=== PATIENT | female | born 1995 | race Caucasian/White ===

== ENCOUNTER 2018-09-17 09:23 | Inpatient (IN) ==
[2018-09-17] MEDS ORDERED: Naloxone 0.4 MG/ML INJ IVP PRN (10:02)
[2018-09-17] MEDS ORDERED: Ondansetron 4 MG/2 ML VIAL IVP PRN (10:02)
[2018-09-17] MEDS ORDERED: *HR* Nalbuphine 10 MG/ML AMPUL IVP PRN (10:02)
[2018-09-17] MEDS ORDERED: Famotidine 20 MG/2 ML VIAL IVP PRN (10:02)
[2018-09-17] MEDS ORDERED: Metoclopramide 10 MG/2 ML VIAL IVP PRN (10:02)
[2018-09-17] MEDS ORDERED: Oxytocin 20 units/ LR 1000 mL 20 UNIT/1,000 ML BAG IVC SCH (10:15)
[2018-09-17 10:28] LABS: White Blood Count 13.4 K/mcL (4.3-11.1)
[2018-09-17 10:29] LABS: Basophils # 0.1 K/mcL (0.0-0.2); Basophils % 0.4 %; Eosinophils # 0.1 K/mcL (0.0-0.6); Eosinophils % 0.9 %; Hematocrit 39.5 % (35.3-44.9); Immature Granulocytes % 0.4 % (0-4); Lymphocytes % 22.2 %; Mean Corpuscular HGB Conc 32.9 g/dL (31.6-35.5); Mean Corpuscular Hemoglobin 29.8 pg (28.0-33.3); Mean Corpuscular Volume 90.6 fL (83.0-100.0); Mean Platelet Volume 12.1 fL (9.4-12.4); Monocytes % 7.1 %; Neutrophils # 9.2 K/mcL (1.6-8.9); Platelet Count 305 K/mcL (140-400); Red Blood Count 4.36 M/mcL (3.82-4.97); Red Cell Distribution Width 13.7 % (11.5-14.5)
[2018-09-17 10:37] LABS: Amphetamine Screen,Urine Negative ng/mL (Cutoff=1000); Barbiturate Screen,Urine Negative ng/mL (Cutoff=200); Benzodiazepines Screen,Urine Negative ng/mL (Cutoff=200); Cannabinoid Screen,Urine Negative ng/mL (Cutoff = 50); Cocaine Screen,Urine Negative ng/mL (Cutoff= 300); Opiate Screen,Urine Negative ng/mL (Cutoff=300); Phencyclidine Screen,Urine Negative ng/mL (Cutoff=25)
--- NOTE | 2018-09-17 10:41 | OB/GYN History & Physical ---
Date of Encounter: 09/17/18 Time of Encounter: 10:42 Assessment and Plan (1) 38 weeks gestation of Current visit: Yes Status: Acute Admit for SROM at 38w4d (2) Spontaneous rupture of amniotic membranes Current visit: Yes Status: Acute Augment with Pitocin if needed Temp q2h (3) NST (non-stress test) reactive Current visit: Yes Status: Acute FHR 140 bpm, moderate variability, +15x15 accels, no decels. (4) Blood type O- Current visit: Yes Status: Acute Collect cord blood at delivery. Rhogam if indicated. History of Present Illness Chief complaint: SROM at 38w4d HPI: Ms. Mills is a 23 year old female at 38w4d who presents today after AROM this morning at approximately 0800 while in the office for her visit. Clear fluid, positive movement, small amount of bloody show noted. Blood type: O negative GBS negative HbSAG negative RPR negative HIV negative Hep C negative Varicella Immune Rubella Immune Past Med Surg Social Fam HX - Past Medical History Medical history: no medical history Psychiatric history: no psych history - Past Surgical History Surgical History: other Additional surgical history: ACL repair - Social History Smoking Status: Never smoker Smokeless Tobacco Status: No Alcohol use: none Drug use: none Occupational status: employed Current living situation: Home - Independent Recent Out of Country Travel Within the Last 8 Weeks: No Exposure or Possible Exposure to Illness During Travel: No - Family History Mother Living Status: Still Living Hx Family Cardiac Disorders: No Hx Family Respiratory Disorders: No Hx Family Cancer: No Hx Family GI Disorders: No Hx Family Genitourinary Disorders: No Hx Family Endocrine Disorder: No Hx Family Musculoskeletal Disorders: No Hx Family Neuromuscular Disorders: No Hx Family Neurologic Disorders: No Hx Family HEENT Disorders: No Hx Family Autoimmune Disorders: No Hx Family Reproductive Disorders: No Hx Family Psychosocial Disorders: No Hx Family Medical Disorders: No Obstetrical History - Pregnancies : 1 Para: 0 Term: 0 : 0 Ab's: 0 Livin Medications and Allergies Vit No.129/Iron/FA [ Tablet] 1 each PO DAILY 09/17/18 [History] Allergy/AdvReac Type Severity Reaction Status Date / Time hydrocodone [From Vicodin] Allergy Hives Verified 09/17/18 10:05 oxycodone [From Percocet] Allergy Hives Verified 09/17/18 10:05 Review of System OB All systems PM: reviewed and no additional remarkable complaints except as stated Exam - Constitutional Constitutional: well developed, well nourished, no acute distress, average body habitus - HEENT HEENT: Normocephaly, Mucus Membranes Moist - Neck Neck exam: full ROM - Lungs Respiratory exam: CTAB - Cardiovascular Cardiovascular exam: RRR, +S1, +S2 - Abdomen Abdomen: Present: bowel sounds normal, gravid, non tender - Extremities Extremities exam: full ROM, normal capillary refill, normal inspection - Vulva Vulva: bilateral: normal - Vagina Vagina: Present: normal moisture - Cervix Dilation: 1 Effacement: 80 Station: -1 - Uterus Uterus exam: Present: normal size - Anus/Rectum Anus/Rectum: Present: normal perianal skin Results Result Diagrams: 09/17/18 09:45 Abnormal lab results WBC 13.4 K/mcL (4.3-11.1) H 09/17/18 09:45 9.2 K/mcL (1.6-8.9) H 09/17/18 09:45 All other labs normal. - VTE Reasons for not Prescribing Prophylaxis: Treatment not Indicated - Low risk for VTE
[2018-09-17] MEDS: Ringers Solution, Lactated 1,000 ML IVC SCH ×2 (11:27→17:54)
--- NOTE | 2018-09-17 12:38 | Anesthesia Evaluation PreOp ---
Date of Encounter: 09/17/18 Time of Encounter: 12:36 - Past History Planned Operation: LAURA Cardiac History: Denies any Significant Hx Pulmonary History: Denies Any Significant HX Other Medical History: Denies Any Significant HX, GERD Anesthesia History: No Prior Anesthetic Complications, Past Anesthesia (acl) : Yes Test: Positive Alcohol Use: none Drug use: none Medications and Allergies Vit No.129/Iron/FA [ Tablet] 1 each PO DAILY 09/17/18 [History] Allergy/AdvReac Type Severity Reaction Status Date / Time hydrocodone [From Vicodin] Allergy Hives Verified 09/17/18 10:05 oxycodone [From Percocet] Allergy Hives Verified 09/17/18 10:05 - Meds/Allergy Pre-op Review Medications Reviewed: Yes Allergies Reviewed: Yes Beta Blockers on Current Med List: No Anesthesia Results - Labs 09/17/18 09:45 Anesthesia Exam 123/75 94 16 fht 125 Height: 5'3" Weight: 78 NPO (# of Hours): 4 Pain Scale: 6 Pain Scale Used: Numeric (1 - 10) - HEENT Pupil (Motor): Pupils equal Mallampati: II Teeth: Normal Oral Opening: Greater than 3 - LAND SURVEYOR LOC: Oriented LAND SURVEYOR Motor: Normal RUE, Normal LUE, Normal RLE, Normal LLE, Normal Face LAND SURVEYOR Sensory: Normal: RUE, LUE, RLE, LLE, Face - Cardiac Rhythm: Regular Murmur: None - Pulmonary Breath Sounds: bilateral Clear Respiratory Effort: Symmetrical Anesthesia Assess/Plan ASA Score: 2 Level of consciousness: Cooperative Anesthetic Plan: Epidural (risks discussed, questions answered, consented) Autologous Blood: No Monitoring Plan: Standard Monitors Recovery Plan: Other
--- NOTE | 2018-09-17 14:48 | OB Labor Progress Note ---
Date of Encounter: 09/17/18 Time of Encounter: 14:45 Labor Progress Note - Subjective Subjective: Patient coping well with contractions. Only complains of some slight cramping. - Cervix Cervix: 1-2/80/-1 - Heart Tones Heart Tones: FHR 135, moderate variability, +15x15 accels, no decels. - [place]: Irregular - Interventions Interventions: SVE Cervical haynes balloon inserted without difficulty, instilled with 60mL sterile water. Patient tolerated without difficulty. - Plan Physician notified: Yes Physician notified details: Dr. Tafoya consulted regarding placement of haynes after SROM Plan: Gentle tug to haynes hourly, Remove after 4 hours if not expelled. Consider Pitocin augmentation IV pain medication or epidural when patient desires. Anticipate
--- NOTE | 2018-09-17 17:27 | OB Labor Progress Note ---
Date of Encounter: 09/17/18 Time of Encounter: 17:23 Labor Progress Note - Subjective Subjective: Patient coping well with contractions. Denies need for pain medication or epidural at this point. - Cervix Cervix: 6/90/-1 - Heart Tones Heart Tones: FHR 160 bpm, moderate variability, +15x15 accels, no decels. - [place]: Difficult to evaluate - Interventions Interventions: SVE AROM of forebag with return of moderate amount of clear fluid. IUPC placed for accurate contraction assessment. - Plan Plan: Begin Pitocin augmentation when able IV pain medication or epidural when patient requests Anticipate
[2018-09-17] MEDS ORDERED: *HR* FentaNYL (PF) 100 MCG/2 ML VIAL ONE (19:41)
[2018-09-17] MEDS ORDERED: Epidural Premix (fent/bupiv) 110 ML EP ONE (20:13)
[2018-09-17] MEDS ORDERED: *HR* FentaNYL (PF) 100 MCG/2 ML VIAL EP ONE (20:21)
--- NOTE | 2018-09-17 20:25 | Anesthesia Procedures ---
Date of Encounter: 09/17/18 Time of Encounter: 20:22 Procedures: Anesthesia - Epidural/Spinal Patient examined: Yes OB Eval: Gestational age: 38 OB Eval: : 1 OB Eval: Hx Para: 0 OB Eval: Dilated at (cm): 5 OB Eval: Contractions: Non-stressed pattern Consent Obtained: Yes Supplemental Oxygen: None/Room Air Site Prep: Aseptic Technique, Sterile prep and drape, 0.5% Chlorhexidine/Alcohol Patient position: upright Local Anesthetic: Lidocaine 1% Amount of Local Anesthetic used: 3 Touhy Needle Gauge: 18 Touhy Needle Depth (cm): 7 Catheter Depth at Skin (cm): 15 Test Dose (1.5% Lido + Epi): Volume given (mls): 3 Test Dose Result: Negative Loading Dose: Fentanyl (mcg): 100 Loading Dose: Other: ropivacaine 0.2% 5cc Loading Dose Administered: Thru Touhy Needle Infusion Med: 0.125% Bupivacaine w/ 2 mcg/ml Fentanyl Infusion Rate (mls/hr): 15 (pcea 5cc q30") Catheter Secured in Place: Tegaderm Interspace Used: L2-L3 Loss of Resistance (DELAI): Yes Blood: No CSF: No Paresthesia: No Procedure: aseptic, amelia well, VSS, effective Vitals + FHT's: 112/78 88 16 fht 134
[2018-09-17] MEDS ORDERED: Epidural Premix (fent/bupiv) 110 ML EP SCH (20:30)
--- NOTE | 2018-09-17 23:42 | OB Labor Progress Note ---
Date of Encounter: 09/17/18 Time of Encounter: 23:39 Labor Progress Note - Subjective Subjective: Patient resting comfortably with epidural in place. - Vital Signs Vital Signs: WNL - Cervix Cervix: 9/90/-1 - Heart Tones Heart Tones: 150 bpm, moderate variability, no accels, variable and late decelerations. - [place]: 2-3 min - Interventions Interventions: SVE Attempted pushing but cervix could not be reduced. - Plan Physician notified: Yes Physician notified details: Dr. Tafoya aware of FHR monitor strip, interventions, and SVE Plan: Positioned in extreme right lateral position Recheck cervix and reposition in approximately 30 minutes unless patient feels extreme rectal pressure. Anticipate
--- NOTE | 2018-09-18 01:01 | Event Note ---
Date of Encounter: 09/18/18 Time of Encounter: 00:58 Called to evaluate patient with deceleration(s). Patient is OP. Attempted to rotate. IV pitocin was turned off. O2 mask was placed. We attempted to push with the patient for 15 minutes. Contraction(S) spaced out. Decision was made to hault pushing, and restart the pitocin with adequate contraction(s). Will plan to start IV Pitocin. Pending CEFM, will plan for . If unable to do so or deceleration(s) occur, will likely plan for primary low transverse delivery. MD BELTRAN
--- NOTE | 2018-09-18 02:14 | OB Labor Progress Note ---
Date of Encounter: 09/18/18 Time of Encounter: 02:10 Labor Progress Note - Subjective Subjective: Patient is uncomfortable with contractions and feeling rectal pressure and pain. Epidural dose was decreased previously for pushing. - Vital Signs Vital Signs: WNL, last temp 99.6 oral. - Cervix Cervix: Complete/+1 - Heart Tones Heart Tones: 180 bpm, moderate variability, no accels, late and variable decelerations. - [place]: 2-3 minutes - Interventions Interventions: SVE Attempted pushing. Patient with excellent effort but little descent noted. Dr. Tafoya also at bedside for pushing efforts, aware of heart rate tracing. Attempted side-lying, hands and knees and lithotomy position for pushing. - Plan Physician notified: Yes Physician notified details: Dr. Tafoya at bedside for pushing. Plan: Turn epidural back to original dose. Anesthesia notified. Allow patient to rest for 20-30 minutes after repositioning. Attempt pushing one last time. If no descent will discuss option of section.
--- NOTE | 2018-09-18 03:37 | OB/GYN Procedure Note ---
Delivery - Delivery Date: 09/18/18 Provider: Rachel Joya Intrapartum events: prolonged 2nd stage>2.5hr Delivery induction: haynes Delivery augmentation: rupture of membranes (forebag), pitocin Delivery monitor: internal FHT, internal uterine Anesthesia: epidural Quantitated Blood Loss: 250 - Infant (s) A Infant Delivery Date: 09/18/18 Infant Delivery Time: 02:50 Presentation: vertex Position: OA Gender: Male Viability: Viable Pounds: 7 Ounces: 11 Weight Gram: 3495 kg at 1 minute: 8 at 5 mins: 9 Shoulder Dystocia: not encountered Specimens collected: cord blood Placenta: spontaneous Cord: 3 umbilical vessels - Repair Episiotomy: none Laceration Description: Perineal - 2nd Degree - Complications Delivery complications: none Delivery comments: Called to room for patient with extreme urge to push. Under maternal effort, spontaneous delivery of viable male over second-degree perineal laceration. Infant placed on maternal abdomen for drying and stimulation. Cord clamped and cut after pulsation ceased. No nuchal cord, shoulder dystocia, or meconium encountered. Due to another patient to deliver, perineal repair was initiated by myself and completed by Dr. Tafoya. Spontaneous delivery of intact placenta, EBL 250 MLS. Mother and in kangaroo care for 2 hour recovery. - Disposition Mom disposition: stable in LDR disposition: stable in LDR
[2018-09-18] MEDS ORDERED: Measles/Mumps/Rubella Vacc 0.5 ML VIAL SQ PRN (05:46)
[2018-09-18] MEDS ORDERED: Oxytocin 20 units/ LR 1000 mL 20 UNIT/1,000 ML BAG IVC SCH (05:46)
[2018-09-18] MEDS ORDERED: Rho Immune Globulin 1,500 UNIT SYRINGE IM PRN (05:46)
[2018-09-18] MEDS ORDERED: Acetaminophen 325 MG TABLET PO PRN (05:46)
[2018-09-18] MEDS: Prenatal Vit/FA 1 EACH TABLET PO SCH (08:26)
[2018-09-18] MEDS ORDERED: Benzocaine/Menthol 56 GM AEROSOL SPRAY TP PRN (10:08)
[2018-09-18] MEDS: Ibuprofen 600 MG TABLET PO PRN (21:56)
[2018-09-19 06:21] LABS: Basophils # 0.1 K/mcL (0.0-0.2); Basophils % 0.3 %; Eosinophils # 0.1 K/mcL (0.0-0.6); Eosinophils % 0.6 %; Hematocrit 31.6 % (35.3-44.9); Immature Granulocytes % 0.6 % (0-4); Lymphocytes # 3.6 K/mcL (0.6-4.6); Lymphocytes % 16.4 %; Mean Corpuscular HGB Conc 33.2 g/dL (31.6-35.5); Mean Corpuscular Hemoglobin 30.1 pg (28.0-33.3); Mean Corpuscular Volume 90.5 fL (83.0-100.0); Mean Platelet Volume 11.6 fL (9.4-12.4); Monocytes # 1.5 K/mcL (0.0-1.3); Monocytes % 6.9 %; Neutrophils # 16.4 K/mcL (1.6-8.9); Platelet Count 252 K/mcL (140-400); Red Blood Count 3.49 M/mcL (3.82-4.97); Red Cell Distribution Width 14.1 % (11.5-14.5); Segmented Neutrophils % 75.2 %
[2018-09-19 06:23] LABS: Hemoglobin 10.5 g/dL (11.5-15.4); White Blood Count 21.8 K/mcL (4.3-11.1)
[2018-09-19] MEDS: Ibuprofen 600 MG TABLET PO PRN (06:26)
[2018-09-19] MEDS: Prenatal Vit/FA 1 EACH TABLET PO SCH (08:06)
[2018-09-19 08:09] VITALS: BP 121/77
--- NOTE | 2018-09-19 10:01 | Discharge Summary ---
Date of Encounter: 09/19/18 Time of Encounter: 09:58 - Discharge Diagnosis (1) Vaginal delivery Priority: Primary Status: Acute Comments: Feeling well Tolerating regular diet Pain well-controlled with by mouth pain meds Ambulating independently Voiding independently Lochia light Passing flatus, no BM yet Vital signs stable Discharge home today (2) Breast feeding status of mother Priority: Secondary Status: Acute Comments: Community resources provided (3) Acute blood loss anemia Priority: Secondary Status: Acute Comments: Continue iron supplementation daily (4) Blood type O- Priority: Secondary Status: Acute Comments: Rhogam administered - Discharge Medications Prescriptions: New Ferrous Sulfate 325 mg PO DAILY #30 tablet Acetaminophen [Tylenol] 650 mg PO Q6HR PRN tablet PRN Reason: Mild Pain Ibuprofen [Motrin] 600 mg PO Q6HR PRN #30 tablet PRN Reason: cramping Benzocaine/Menthol Rupert [Dermoplast Rupert] 1 appl TP QID PRN aerosol PRN Reason: See Comments Docusate [Colace] 100 mg PO BID #30 capsule Continued Vit No.129/Iron/FA [ One Daily Tablet] 1 each PO DAILY Home Medications: Vit No.129/Iron/FA [ One Daily Tablet] 1 each PO DAILY 09/17/18 [History] Acetaminophen [Tylenol] 650 mg PO Q6HR PRN tablet 09/19/18 [Rx] Benzocaine/Menthol Rupert [Dermoplast Ru[place]] 1 appl TP QID PRN aerosol 09/19/18 [Rx] Docusate [Colace] 100 mg PO BID #30 capsule 09/19/18 [Rx] Ferrous Sulfate 325 mg PO DAILY #30 tablet 09/19/18 [Rx] Ibuprofen [Motrin] 600 mg PO Q6HR PRN #30 tablet 09/19/18 [Rx] Allergies/Adverse Reactions: Allergy/AdvReac Type Severity Reaction Status Date / Time hydrocodone [From Vicodin] Allergy Hives Verified 09/17/18 10:05 oxycodone [From Percocet] Allergy Hives Verified 09/17/18 10:05 Data Procedures and tests throughout hospitalization: Laboratory Tests 09/17/18 09/17/18 09/18/18 09:45 09:45 03:45 WBC 13.4 H RBC 4.36 Hgb 13.0 Hct 39.5 MCV 90.6 MCH 29.8 MCHC 32.9 RDW 13.7 Plt Count 305 MPV 12.1 Immature Gran % 0.4 Seg Neutrophils % 69.0 Lymphocytes % 22.2 Monocytes % 7.1 Eosinophils % 0.9 Basophils % 0.4 Neutrophils # 9.2 H Lymphocytes # 3.0 Monocytes # 1.0 Eosinophils # 0.1 Basophils # 0.1 Urine Opiates Screen Negative Ur Buprenorphine Scrn Negative Ur Barbiturates Screen Negative Ur Phencyclidine Scrn Negative Ur Amphetamines Screen Negative U Benzodiazepines Scrn Negative Urine Cocaine Screen Negative U Marijuana (THC) Screen Negative Ur Drug Screen Interp See Below Screen NEGATIVE Baby's Blood Type O RH POSITIVE Mother's Blood Type O RH NEGATIVE Rhogam Indicated YES Rhogam Req for Mother 1 09/19/18 06:08 WBC 21.8 H D RBC 3.49 L Hgb 10.5 L D Hct 31.6 L MCV 90.5 MCH 30.1 MCHC 33.2 RDW 14.1 Plt Count 252 MPV 11.6 Immature Gran % 0.6 Seg Neutrophils % 75.2 Lymphocytes % 16.4 Monocytes % 6.9 Eosinophils % 0.6 Basophils % 0.3 Neutrophils # 16.4 H Lymphocytes # 3.6 Monocytes # 1.5 H Eosinophils # 0.1 Basophils # 0.1 Urine Opiates Screen Ur Buprenorphine Scrn Ur Barbiturates Screen Ur Phencyclidine Scrn Ur Amphetamines Screen U Benzodiazepines Scrn Urine Cocaine Screen U Marijuana (THC) Screen Ur Drug Screen Interp Screen Baby's Blood Type Mother's Blood Type Rhogam Indicated Rhogam Req for Mother Labs on day of discharge: Labs from last 24 hours 09/19/18 06:08 WBC 21.8 H D RBC 3.49 L Hgb 10.5 L D Hct 31.6 L MCV 90.5 MCH 30.1 MCHC 33.2 RDW 14.1 Plt Count 252 MPV 11.6 Immature Gran % 0.6 Seg Neutrophils % 75.2 Lymphocytes % 16.4 Monocytes % 6.9 Eosinophils % 0.6 Basophils % 0.3 Neutrophils # 16.4 H Lymphocytes # 3.6 Monocytes # 1.5 H Eosinophils # 0.1 Basophils # 0.1 Date of admission: 09/17/18 09:23 Primary care physician: PCP NONE Consults: 09/18/18 05:46 Consult to Vehicle Sales Professional [CONS] Routine Comment: Vaginal delivery, consult needed Discharging clinician: Mayelin Tuttle Anticipated date of discharge: 09/19/18 - Patient Status Disposition: Home, Self-Care Condition: Good Overall status at discharge: patient is progressing back to baseline - Discharge Instructions Follow Up With: NONE,PCP [Primary Care Provider] - Candy Garza MD [Partnered Physician] - - Diet and Activity Activity: increase activity as tolerated Diet: regular diet Hospital Course Reason for admission: active labor, IUP at term Delivery: Episiotomy: none Laceration: 2nd degree Other procedures: none complications: none Discharge diagnosis: IUP at term delivered baby: male Time Attestation: Total time spent providing and/or coordinating discharge services: Time Spent: Less than 30 minutes Exam - Constitutional Vitals: Temp Pulse Resp BP Pulse Ox 98 F 73 20 121/77 97 09/19/18 08:07 09/19/18 08:07 09/19/18 08:07 09/19/18 08:07 09/19/18 08:07 General appearance IM: A&O X 3, pleasant, no acute distress, answers questions appropriately - Respiratory Respiratory exam: Present: CTAB - Cardiovascular Cardiovascular exam IM: Present: RRR, +S1, +S2 - GI/Abdominal GI/Abdominal exam IM: normal bowel sounds, no peritoneal signs - Rectal Rectal exam: deferred - Uterine Tone: Firm Uterus Position: 2 Fingers Below Umbilicus, Midline - Extremities Exam Extremities exam IM: Present: full ROM, normal capillary refill, normal inspection, radial pulses palpable and symmetrical - Neurological Exam Neurological exam: alert, CN II-XII intact, normal gait, oriented X3, reflexes normal, no focal deficits, strengths equal and symetr throughout - Psychiatric Additional comments: Patient denies history of anxiety and depression. Signs and symptoms of depression reviewed with patient and she verbalizes understanding of when to seek help.
[2018-09-19] MEDS ORDERED: Oxytocin 20 units/ LR 1000 mL 20 UNIT/1,000 ML BAG IVC SCH (12:30)
--- NOTE | 2018-09-19 12:30 | OB Labor Progress Note ---
Date of Encounter: 09/19/18 Time of Encounter: 12:28 Labor Progress Note - Subjective Subjective: Patient comfortable with epidural - Cervix Cervix: 9/100/0 - Heart Tones Heart Tones: Baseline 150 Moderate variability Accelerations present 15 x 15 Variable decelerations with each contraction FHR Category II - [place]: Contractions unreadable - Interventions Interventions: SVE IUPC placed Amnioinfusion started - Plan Physician notified: No Plan: Continue expectant management Start pitocin and increase per protocol Amnioinfusion per order Frequent position changes Anticipate
== END 2018-09-19 17:11 | disposition home or self-care (01) | DRG 806 ==
LOC: 1NENULAB → OBSVTOIN 09:23 → 1NENUOBS 09-18 05:43
PROVIDERS: ADMIT Registered Nurse; ATTEND Registered Nurse

== ENCOUNTER 2021-10-24 05:10 | Inpatient (IN) ==
[~2021-10-24 05:10] MED LIST: *HR* FentaNYL (PF) 100 MCG/2 ML VIAL IVP PRN; *HR* Nalbuphine 10 MG/ML AMPUL IV PRN; Azithromycin 500 MG in 0.9 % Sodium Chloride 250 ML IVPB PRN; Famotidine 20 MG/2 ML VIAL IVP PRN; Metoclopramide 10 MG/2 ML VIAL IVP PRN; Naloxone 0.4 MG/ML INJ IVP PRN
[2021-10-24] MEDS ORDERED: Ringers Solution, Lactated 1,000 ML IVC SCH (05:15)
[2021-10-24] MEDS ORDERED: Ringers Solution, Lactated 1,000 ML ONE ×2 (05:16→05:19)
[2021-10-24 05:38] LABS: Basophils % 0.3 %; Eosinophils # 0.1 K/mcL (0.0-0.6); Eosinophils % 0.6 %; Hematocrit 38.8 % (35.3-44.9); Hemoglobin 13.2 g/dL (11.5-15.4); Immature Granulocytes % 0.5 % (0-4); Lymphocytes # 4.9 K/mcL (0.6-4.6); Lymphocytes % 32.2 %; Mean Corpuscular Hemoglobin 31.7 pg (28.0-33.3); Mean Platelet Volume 12.2 fL (9.4-12.4); Monocytes # 1.1 K/mcL (0.0-1.3); Monocytes % 7.4 %; Platelet Count 258 K/mcL (140-400); Red Blood Count 4.17 M/mcL (3.82-4.97); Red Cell Distribution Width 13.2 % (11.5-14.5); White Blood Count 15.2 K/mcL (4.3-11.1)
[2021-10-24 05:43] LABS: Amphetamine Screen,Urine Negative ng/mL (Cutoff=1000); Barbiturate Screen,Urine Negative ng/mL (Cutoff=200); Benzodiazepines Screen,Urine Negative ng/mL (Cutoff=200); Cannabinoid Screen,Urine Negative ng/mL (Cutoff = 50); Cocaine Screen,Urine Negative ng/mL (Cutoff= 300); Opiate Screen,Urine Negative ng/mL (Cutoff=300); Phencyclidine Screen,Urine Negative ng/mL (Cutoff=25)
[2021-10-24] MEDS ORDERED: Ondansetron 4 MG/2 ML VIAL IVP PRN ×2 (06:00→06:08)
[2021-10-24] MEDS ORDERED: Naloxone 0.4 MG/ML INJ IVP PRN (06:08)
[2021-10-24] MEDS ORDERED: EPHEDrine 50 MG/ML VIAL IVP PRN (06:08)
[2021-10-24] MEDS ORDERED: Ropivacaine/PF 0.2% 20 ML VIAL EP ONE (06:08)
[2021-10-24] MEDS ORDERED: Epidural Premix (fent/bupiv) 110 ML EP ONE (06:15)
[2021-10-24] MEDS ORDERED: Epidural Premix (fent/bupiv) 110 ML EP SCH (06:15)
[2021-10-24] MEDS ORDERED: Oxytocin 30 UNIT/503 ML BAG IVC ONE (06:43)
[2021-10-24] MEDS ORDERED: Benzocaine/Menthol 56 GM AEROSOL SPRAY TP PRN (10:37)
[2021-10-24] MEDS ORDERED: Prenatal Vit/FA 1 EACH TABLET PO SCH (10:37)
[2021-10-24] MEDS ORDERED: Lanolin 7 G OINT...G. TP PRN (10:37)
[2021-10-24] MEDS ORDERED: Rho Immune Globulin 1,500 UNIT SYRINGE IM PRN (10:37)
[2021-10-24] MEDS ORDERED: OXYTOCIN/RINGERS LACTATE 10 UNIT/166.6 ML BAG IVC ONE (10:37)
[2021-10-24] MEDS ORDERED: Oxytocin 30 UNIT/503 ML BAG IVC SCH (10:37)
[2021-10-24] MEDS ORDERED: Ondansetron ODT 4 MG TAB.RAPDIS SL PRN (10:37)
[2021-10-24] MEDS: Ibuprofen 600 MG TABLET PO SCH ×2 (13:39→20:05)
[2021-10-24] MEDS: Acetaminophen 325 MG TABLET PO SCH (20:05)
[2021-10-25] MEDS: Acetaminophen 325 MG TABLET PO SCH ×2 (04:29→10:14)
[2021-10-25] MEDS: Ibuprofen 600 MG TABLET PO SCH ×2 (04:30→10:14)
[2021-10-25 05:14] VITALS: BP 122/76; PULSE 74; TEMP 98.1; O2SAT 97
== END 2021-10-25 13:12 | disposition home or self-care (01) | DRG 560 ==
LOC: 1NENULAB → 1NENUOBS 10:23
PROVIDERS: ADMIT Registered Nurse; ATTEND Registered Nurse